=== PATIENT | female | born 1935 | race Caucasian/White ===

== ENCOUNTER → 2024-02-19 14:36 | Outpatient (REF) | payer OTHER, SELFPAY | LOC: WDC 14:36 | PROVIDERS: ATTENDING PHYSICIAN Family Medicine | DX: Z12.31 Encounter for screening mammogram for malignant neoplasm of breast (principal) | CPT/HCPCS: 77063; 77067 ==

== ENCOUNTER 2024-05-22 22:56 | Inpatient (IN) | payer OTHER, SELFPAY ==
[2024-05-22 18:57] VITALS: BP 152/81
[2024-05-22 19:22] LABS: % Basophils 0.6 % (0-2); % Eosinophils 1.5 % (0-6); % Immature Granulocytes 0.3 % (0-0.5); % Lymphocytes 18.5 % (20.5-51.1); % Monocytes 6.8 % (1.7-9.3); % Neutrophils 72.3 % (42.2-75.2); Absolute Basophils 0.1 10^3/uL (0-0.2); Absolute Eosinophils 0.1 10^3/uL (0-0.7); Absolute Lymphocytes 1.8 10^3/uL (1.2-3.4); Absolute Monocytes 0.6 10^3/uL (0.1-0.6); Absolute Neutrophils 6.8 10^3/uL (1.4-6.5); Hematocrit 36.5 % (37.0-47.0); Hemoglobin 11.6 g/dL (12.0-16.0); Mean Corp Hgb Conc. 31.8 g/dL (33.0-37.0); Mean Corpuscular Hgb 26.1 pg (27.0-31.0); Mean Corpuscular Volume 82.2 fL (81.0-99.0); Mean Platelet Volume 8.9 fL (7.4-10.4); Nucleated Red Blood Cells % 0 %; Platelet Count 318 10^3/uL (130-400); Red Blood Cell Count 4.44 10^6/uL (4.20-5.40); Red Cell Dist. Width 18.2 % (11.5-14.5); White Blood Cell Count 9.5 10^3/uL (4.8-10.8)
[2024-05-22 19:35] LABS: ALT (SGPT) 23 U/L (0-35); AST (SGOT) 37 U/L (14-36); Albumin 3.8 g/dl (3.5-5.0); Alkaline Phosphatase 91 U/L (38-126); Blood Urea Nitrogen 14 mg/dl (7-17); Calcium 9.2 mg/dl (8.4-10.2); Carbon Dioxide 26 mmol/L (22-30); Chloride 103 mmol/L (98-107); Glucose 112 mg/dl (70-99); Potassium 4.2 mmol/L (3.5-5.1); Sodium 136 mmol/L (135-145); Total Bilirubin 0.5 mg/dl (0.2-1.3); Total Protein 6.9 g/dl (6.3-8.2); eGFR > 60.00
[2024-05-22 19:37] LABS: COVID-19 Antigen Negative (Negative)
[2024-05-22 21:06] VITALS: BP 136/58
[2024-05-22 21:10] VITALS: BP 136/58
--- NOTE | 2024-05-22 21:17 | ED.GENMED ---
History of Present Illness
General
Chief Complaint: Fever
Source: patient, spouse and family
Exam Limitations: none
Time Seen by Provider: 05/22/24 21:11
History of Present Illness
History of Present Illness:
See MDM
Past History
Past History
ED Past Medical History: HTN, Hypercholesterolemia and NC
Social History
Tobacco: Non-smoker
Personal:
Phy Exam
Physical Exam
Physical Exam:
See MDM
Course
Orders/Labs/Results
Orders:
Orders
05/22/24 19:06
COVID-19 Antigen Urgent
Source: Nasal Swab
Complete Blood Count/With Diff Urgent
Comprehensive Metabolic Panel Urgent
Lactic Acid Urgent
05/22/24 21:15
Straight cath- Treatment ONCE
Acetaminophen [Tylenol] 1,000 mg PO NOW STA
CR Chest - 2 Views Urgent
Comment:
Reason For Exam: fever, cough
05/22/24 21:45
Urinalysis Reflex To Culture Urgent
Date Specimen was Collected: 05/22/24
Time Specimen was Collected: 21:24
Urine Microscopic Reflex Cult Urgent
05/22/24 22:26
Azithromycin 500 mg/250 ml [Zithromax Infusion] 500 mg in 250 ml IV NOW
CefTRIAXone [Rocephin] 1,000 mg IV NOW STA
05/22/24 22:27
Blood Culture Urgent
PACO Source: Blood/Venous
Specimen Description:
Abnormal Lab Results
05/22/24 05/22/24
19:06 21:45
Hgb 11.6 L g/dL
(12.0-16.0)
Hct 36.5 L %
(37.0-47.0)
MCH 26.1 L pg
(27.0-31.0)
MCHC 31.8 L g/dL
(33.0-37.0)
RDW 18.2 H %
(11.5-14.5)
Absolute Neuts (auto) 6.8 H 10^3/uL
(1.4-6.5)
Lymphocytes % 18.5 L %
(20.5-51.1)
Glucose 112 H mg/dl
(70-99)
AST 37 H U/L
(14-36)
Urine Ketones 2+ A
(Negative)
Ur Occult Blood Reflex 3+ A
(Negative)
05/22/24 19:06
05/22/24 19:06
Vital Signs
Initial and Last Documented VS:
Initial Vital Signs
Temp Pulse Resp BP Pulse Ox
100.4 F H 79 18 152/81 92
05/22/24 18:57 05/22/24 18:57 05/22/24 18:57 05/22/24 18:57 05/22/24 18:57
Last Documented Vital Signs
Temp Pulse Resp BP Pulse Ox
100.4 F H 75 19 136/58 97
05/22/24 21:06 05/22/24 21:06 05/22/24 21:06 05/22/24 21:06 05/22/24 21:06
MDM/Problems Addressed
Differential Diagnosis Includes:
HPI and MDM Narrative:
89-year-old female presenting for evaluation of fever and weakness. Her had similar issues but was placed on antibiotics and his symptoms resolved. Patient has had a mild cough. Family is worried about her profound weakness. She also
complains of increased urinary frequency on my evaluation, blood work was already performed. White blood cell count and lactic acid and COVID are negative. However, patient is febrile and generally weak. Will obtain chest x-ray and urinalysis
Physical exam
General: Weak and fatigued
HEENT: protecting airway
Neck: appears supple
CV: No evidence of cyanosis
Resp: No accessory muscle use. Mild rhonchi to bases
Abd: Non-distended. Soft and nontender
back: No rash or tenderness noted
Extremities: No deformities. Muscle strength intact to both lower extremities. Distal sensation and pulses grossly intact. Patellar reflexes intact
Neuro: alert
Psych: Normal affect
Skin: Warm
Problems Addressed including Acute and Chronic Conditions affecting care:
1. Fever and weakness
Acuity: acute
Prognosis: stable
Details: Will obtain chest x-ray and urinalysis
Update: Chest x-ray concerning for pneumonia. Azithromycin and Rocephin started
Updates
Chest x-ray concerning for left lower lobe pneumonia. Given her profound weakness and fatigue, will start antibiotics and admit
Differential Diagnosis (but not limited to): Viral syndrome, pneumonia, UTI
Testing considered: Abdominal CT
Drug therapy (if applicable): OTC meds, please see d/c instruction regarding Rx drugs
Amount and/or Complexity of Data Reviewed
Clinical info obtained from: Patient. and daughter stating she is too weak to care for herself at home
External data reviewed: N/A
Labs I independently reviewed (but not limited to): White blood cell count normal
Radiology: X-ray independently reviewed: Chest x-ray concerning for left lower lobe pneumonia
Pulse Ox: not hypoxic
EKG independently reviewed: N/A
Community Relations Advisor: N/A
Critical Care: N/A
Risk of Complication:
Social Determinants of health: Good social support
Discussed with other providers: Hospitalist
Escalation of Care includes Admit/Obs: Given the pneumonia, fever and profound weakness, will start antibiotics and admit
Occasional wrong word or 'sound a like' substitutions may have occurred due to the inherent limitations of voice recognition software. Read the chart carefully and recognize, using context, where substitutions have occurred.
*Critical Care Note
Total Time (30-74mins, 75-104mins- exclusive of procedures): Not Applicable
ED Attending Note
-
Portions of this chart may have been created with voice recognition software.� Occasional wrong word or��sound alike� substitutions may have occurred due to the inherent limitations of voice recognition software.
Discharge Plan
Departure
Patient Disposition: Home (Routine Discharge)
Date of Disposition: 05/22/24
Time of Disposition: 22:30
Patient with high blood pressure during this ER visit?: No
Discharge Problem:
PNA (pneumonia)
Prescriptions:
No Action
pravastatin 40 MG tablet
40 mg PO HS
metoprolol succinate 50 MG tablet extended release 24 hr
50 mg PO DAILY
clopidogrel 75 MG tablet
75 mg PO DAILY
aspirin [Aspir-Low] 81 MG tablet,delayed release (DR/EC)
81 mg PO DAILY
Folic Acid: 800 MCG
800 mcg PO DAILY
citalopram 10 MG tablet
10 mg PO DAILY
isosorbide mononitrate 60 MG tablet extended release 24 hr
60 mg PO DAILY
irbesartan 150 MG tablet
150 mg PO DAILY
Referrals:
Eduardo Woods MD [Family Provider] -
Interventions
Interventions:
*Risk Screen - Suicide Last Done: 05/22/24 18:57
*General Assessment Last Done: 05/22/24 18:57
*Neglect/Abuse Screening Last Done: 05/22/24 18:57
ED- Fall Risk Assessment Last Done: 05/22/24 21:06
*ED COVID-19 Vaccine History Last Done: 05/22/24 18:57
ED- Neurological Assessment Last Done: 05/22/24 21:06
ED-Skin Assessment Last Done: 05/22/24 21:06
Discharge Date and Time
Print Language: L[place]
[2024-05-22] MEDS: TYLENOL 1000 MG PO (21:32)
[2024-05-22 22:00] VITALS: BP 118/56
[2024-05-22 22:00] LABS: Urine Albumin Trace (Neg - Trace); Urine Bilirubin Negative (Negative); Urine Character Clear (Clear); Urine Color Yellow; Urine Glucose Negative (Negative); Urine Ketone 2+ (Negative); Urine Leukocyte Negative (Negative); Urine Nitrite Negative (Negative); Urine Occult Blood 3+ (Negative); Urine Specific Gravity 1.015 (<1.030); Urine Urobilinogen Negative (Neg - 1+)
[2024-05-22 22:38] LABS: Urine Bacteria Few (Negative)
--- NOTE | 2024-05-22 22:53 | HPS.HSE ---
Family Physician
-
Family Physician: Eduardo Woods
Chief Complaint
-
Weakness
History of Present Illness
Patient is a 89 yo F with PMH CAD with prior stent, hypertension, hyperlipidemia and depression who presents c/o fatigue and weakness x 1 day. Pt states she 'just doesn't feel right.' Pt also c/o of dry, non-productive cough, nausea, urinary
frequency, and 1 episode of urinary incontinence because she could not make it to the bathroom in time due to significant weakness. Upon arrival to the emergency department she was found to be febrile with temp 100.4F. She denies sweats/chills,
chest pain, palpitations, shortness of breath, vomiting or abdominal pain.
Medical History
Past Medical History
Past Medical History: Reports Other
Additional Past Medical History:
Coronary Artery Disease s/p Stent
TIA
Essential Hypertension
Hyperlipidemia
Depression
Past Surgical History: Reports None
Social History
Tobacco: Non-smoker
Alcohol: None
Personal:
Living: With Family
Family History
Family History: Not pertinent
Allergies / Home Medications
Allergies reflects when Allergies were last updated in [employer].
Home Medications with original date entered in [employer]
Allergy/Medication List:
Allergies
Allergy/AdvReac Type Severity Reaction Status Date / Time
Shellfish *RETIRED-07/05/12 Allergy Difficulty Verified 05/17/20 06:35
[Shellfish] Breathing
Home Medications
metoprolol succinate 50 mg tablet,extended release 24 hr 50 mg PO DAILY 03/16/14
citalopram 10 mg tablet 10 mg PO DAILY 05/16/20
irbesartan 150 mg tablet 150 mg PO DAILY 05/16/20
isosorbide mononitrate 60 mg tablet,extended release 24 hr 60 mg PO DAILY 05/16/20
aspirin 81 mg chewable tablet 81 mg PO DAILY 05/22/24
atorvastatin 80 mg tablet 80 mg PO DAILY 05/22/24
therapeutic multivitamin 1 tab PO DAILY 05/22/24
Review of Systems
-
A 12 point ROS was completed and negative except as noted: Yes
Constitutional: Reports Fever; Denies Night Sweats or Chills
Respiratory: Reports See HPI
Cardiac: Denies Chest Pain or Palpitations
Abdomen/GI: Reports Nausea; Denies Abdominal Pain or Vomiting
Physical Exam
Vital Signs
Vital Signs
Temp Pulse Resp BP Pulse Ox
100.4 F H 76 20 118/56 90
05/22/24 21:06 05/22/24 22:00 05/22/24 22:00 05/22/24 22:00 05/22/24 22:00
Physical Exam
General: Comfortable and Conversant
HEENT: Anicteric and Moist mucous membranes
Respiratory: Clear, Non Labored Respirations and Other (Dry Cough)
Cardiac: S1/S2 and Regular Rhythm
GI: Soft and Non Tender
Rectal: Deferred by Provider
Musculoskeletal: No Clubbing, No Cyanosis and No Edema
Skin: Warm and Dry
Neuro: Awake, Alert, Oriented, Nonfocal/grossly intact and Other (Chronic Foot Drop)
Psych: Calm
Laboratory Results
-
05/22/24 19:06
05/22/24 19:06
Laboratory Results
Lactic Acid 1.0 mmol/L (0.7-2.0) 05/22/24 19:06
Total Bilirubin 0.5 mg/dl (0.2-1.3) 05/22/24 19:06
AST 37 U/L (14-36) H 05/22/24 19:06
ALT 23 U/L (0-35) 05/22/24 19:06
Alkaline Phosphatase 91 U/L (38-126) 05/22/24 19:06
Data Reviewed
-
Lab Data: Labs Reviewed by me
Impression/Plan
-
Community Acquired Pneumonia
-Continue Rocephin and Zithromax
Coronary Artery Disease s/p Stent
-Continue aspirin
-Continue isosorbide mononitrate
Essential Hypertension
-Continue irbesartan
Hyperlipidemia
-Continue atorvastatin
Depression
-Continue citalopram
DVT proph: Lovenox
Code Status: DNR
--- NOTE | 2024-05-22 22:54 | W.PN.UPDATE ---
Update Note
Progress Note Update
This is an addendum to the H&P written by Roseline Coyne on 05/22/2024. Patient seen and examined independently with PA.
89-year-old female past medical history of CAD s/p stents, HTN, HLD, TIA here for weakness/cough and fever. Chest x-ray shows left lower lobe pneumonia. Patient also with worsening of chronic back pain, some urinary urgency although urinalysis not
convincing for infection. COVID-negative. IV fluids. Ceftriaxone/azithromycin.
[2024-05-22] MEDS: ROCEPHIN 1000 MG IV (23:05)
[2024-05-22] MEDS: ZITHROMAX INFUSION 250 IV (23:12)
[2024-05-23] VITALS (8 sets, daily range): BP systolic 132–153; BP diastolic 49–73; PULSE 64; O2SAT 92; BMI 29.1
--- NOTE | 2024-05-23 02:05 | PTCARENOTE ---
Pt arrived onto floor @0205. Pt AAOx3 and a basting puller to the bed. Pt with no complaints of pain or SOB at this time. Pt oriented to room and call davis; will continue to monitor
[2024-05-23] MEDS: NSS 1000 IV ×2 (02:53→18:01)
[2024-05-23] MEDS: LOW STRENGTH ASPIRIN 81 MG PO (07:54)
[2024-05-23] MEDS: LIPITOR 80 MG PO (07:54)
[2024-05-23] MEDS: IMDUR (EXTENDED RELEASE) 60 MG PO (07:55)
[2024-05-23] MEDS: AVAPRO 150 MG PO (07:55)
[2024-05-23 11:17] LABS: Hematocrit 32.4 % (37.0-47.0); Hemoglobin 10.3 g/dL (12.0-16.0); Mean Corp Hgb Conc. 31.8 g/dL (33.0-37.0); Mean Corpuscular Hgb 26.3 pg (27.0-31.0); Mean Corpuscular Volume 82.9 fL (81.0-99.0); Platelet Count 259 10^3/uL (130-400); Red Blood Cell Count 3.91 10^6/uL (4.20-5.40); Red Cell Dist. Width 18.2 % (11.5-14.5); White Blood Cell Count 8.6 10^3/uL (4.8-10.8)
--- NOTE | 2024-05-23 11:50 | W.PN.HOSP.TC ---
Today's Communication/Plan
-
Check cultures
Check urinary antigens
Continue antibiotics
Assessment / Plan
Assessment / Plan
Gen-AAOx3, NAD
HEENT-NC, AT, anicteric, clear oral mm
Neck-supple
CV-reg, no M, +S1/S2
Lungs-clear B/L
Abd-soft, NT, ND
Ext-no edema
Musculoskeletal-no cyanosis, clubbing
Skin-warm and dry
Neuro-grossly non-focal
Psych-calm, cooperative
Community-acquired pneumonia -unclear if typical versus atypical infection. Febrile on admission but white blood cell count normal. Clinically improving, feels better today. Still with productive cough. Continue empiric antibiotics. Chest x-ray
unimpressive, no obvious infiltrate. Blood culture sent, pending. Check urinary antigens. Check sputum culture.
Her was ill recently with a cough and is completing a course of antibiotics.
CAD -s/p stent. Continue medical management.
Essential hypertension -stable, continue meds.
Hyperlipidemia -continue atorvastatin.
Depression -continue citalopram.
DNR
PT/OT
Dispo -anticipate discharge home tomorrow if she continues to improve. Outpatient follow-up.
Anticipated Discharge: Within 24 hours
Subjective/Interval History
-
Date of Service: May 23, 2024
Patient seen and examined. Feeling better overall. Denies shortness of breath.
Objective Data
-
Labs:
Laboratory Results
05/23/24
10:33
WBC 8.6
Hgb 10.3 L
Hct 32.4 L
Plt Count 259
Sodium Pending
Potassium Pending
Chloride Pending
Carbon Dioxide Pending
BUN Pending
Creatinine Pending
Glucose Pending
Calcium Pending
Vital Signs:
Vital Signs
Temp Pulse Resp BP Pulse Ox
98.7 F 63 20 143/59 95
05/23/24 07:52 05/23/24 07:52 05/23/24 07:52 05/23/24 07:52 05/23/24 09:28
I&O
05/22/24 05/23/24 05/24/24
06:59 06:59 06:59
Intake Total 420 / 420
Balance 420 / 420
Review of Systems
-
History Source: Patient
All other systems: Reviewed and negative
--- NOTE | 2024-05-23 12:43 | CM ---
authorization manager reviewed patient's chart and met with patient and patient lives with her spouse in a 2 story home with one step to enter, patient is independent with adl's and uses a walker with ambulation. Patient's physician is recommending homecare
for patient and options reviewed with patient and patient has selected [facility], [facility] liaison contacted.
Pharmacy: [facility]
PCP: Dr. Woods
Plan; Home with spouse and [facility].
--- NOTE | 2024-05-23 13:32 | VNURNOTE ---
Home Health Liaison met with patient at bedside to discuss [facility] nurse/therapy, visits, schedule and homebound status. Patient is agreeable and understands that visits at home will be 1-3 x per week to assess and teach medical management. [facility]
brochure provided with contact information. Patient is aware that [facility] will contact them for start of care within a few days after discharge from . [facility] referral completed in [facility].
[2024-05-23 14:33] LABS: Blood Urea Nitrogen 14 mg/dl (7-17); Calcium 8.6 mg/dl (8.4-10.2); Carbon Dioxide 24 mmol/L (22-30); Chloride 105 mmol/L (98-107); Estimated Creatinine Clearance 50 ml/min; Glucose 91 mg/dl (70-99); Potassium 4.1 mmol/L (3.5-5.1); Sodium 134 mmol/L (135-145); eGFR > 60.00
[2024-05-23] MEDS: TYLENOL 650 MG PO (15:38)
--- NOTE | 2024-05-23 15:43 | PTCARENOTE ---
Patient with fever 101.8 and chills this afternoon. Blood cultures pending; PRN Tylenol given as ordered. call center manager hospitalist made aware.
[2024-05-23] MEDS: LOVENOX 40 MG SC (17:07)
--- NOTE | 2024-05-23 18:24 | PTCARENOTE ---
Patient has had multiple loose BM's this afternoon. Dr. Fraga made aware and will hold off on stool sample for now.
[2024-05-23] MEDS: ZITHROMAX 500 MG PO (21:06)
[2024-05-23] MEDS: STERILE WATER FOR INJECTION 10 ML IV (21:07)
[2024-05-23] MEDS: ROCEPHIN 1000 MG IV (21:10)
[2024-05-24] MEDS: TYLENOL 650 MG PO (02:27)
[2024-05-24 07:21] VITALS: BP 125/58
[2024-05-24] MEDS: AVAPRO 150 MG PO (09:30)
[2024-05-24] MEDS: LOW STRENGTH ASPIRIN 81 MG PO (09:31)
[2024-05-24] MEDS: IMDUR (EXTENDED RELEASE) 60 MG PO (09:31)
[2024-05-24] MEDS: LIPITOR 80 MG PO (09:31)
--- NOTE | 2024-05-24 09:53 | PN.CDI ---
CDI
- -
CDI:
Physician Documentation Request
Admit Date: 05/22/24 22:56
Dear Doctor Tiffanie,
Patient admitted for pneumonia.
Selected Entries
05/22/24
18:57 05/22/24
21:06
Temp 100.4 F H 100.4 F H
05/22/24
21:10 05/22/24
21:15 05/22/24
21:45
Resp Rate 28 23 21
Please clarify which of the following most accurately describes the status of the patient's infection:
Sepsis, POA
- Systemic manifestations of infection, with 2 or more SIRS criteria which include:
- Fever >100.4 degrees F or hypothermia < 96.8 degrees F
- Leukocytosis - WBC > 12,000 or leukopenia - WBC < 4,000 or > 10% bands
- Tachycardia > 90 beats per minute
- Tachypnea - RR > 20 breaths per minute or PaCO2 , 32mmHg
Source: Merck Manual 2013
- Indicate the known or suspected organism
Localized Infection Only, Without Systemic Illness
- indicate the site/source, such as pneumonia etc.
Other
Use of terms such as suspected, likely, concern for, or probable (associated with a specific diagnosis that is being evaluated, monitored, or treated as if it exists) are acceptable and can be coded in the inpatient setting, when documented at the
time of discharge.
Thank you,
Martha Glasgow RN, BSN
CDI Specialist
Available via [employer] text
Please use your independent medical judgment in providing your response.
--- NOTE | 2024-05-24 10:00 | W.PN.HOSP.TC ---
Addendum entered and electronically signed by Meek Moreno DO 05/24/24 12:34:
Sepsis - present on admission, possibly due to pneumonia.
Original Note:
Today's Communication/Plan
-
Blood cultures
CT chest
Stool specimen
Acapella, incentive spirometry
Assessment / Plan
Assessment / Plan
Gen-AAOx3, NAD
HEENT-NC, AT, anicteric, clear oral mm
Neck-supple
CV-reg, no M, +S1/S2
Lungs-clear B/L
Abd-soft, NT, ND
Ext-no edema
Musculoskeletal-no cyanosis, clubbing
Skin-warm and dry
Neuro-grossly non-focal
Psych-calm, cooperative
Community-acquired pneumonia -unclear if typical versus atypical infection. Her was ill recently with a cough and is completing a course of antibiotics.
Ongoing fevers noted. Check CT chest to evaluate for infectious versus other etiology as chest x-ray was unremarkable. Recheck blood cultures. Urinary antigens negative. Sputum culture pending.
Currently on ceftriaxone and azithromycin. Add Acapella, incentive spirometry.
Acute diarrhea -rule out C. difficile infection, check stool sample. Other possibility is antibiotic associated colitis. Discussed with nursing.
CAD -s/p stent. Continue medical management.
Essential hypertension -stable, continue meds.
Hyperlipidemia -continue atorvastatin.
Depression -continue citalopram.
DNR
PT/OT
Updated family at the bedside.
Anticipated Discharge: > 48 hours
Subjective/Interval History
-
Date of Service: May 24, 2024
Patient seen and examined. Complaining of loose stools. Productive cough.
Objective Data
-
Vital Signs:
Vital Signs
Temp Pulse Resp BP Pulse Ox
97.8 F 67 22 125/58 96
05/24/24 07:21 08/07/24 07:21 05/24/24 07:21 05/24/24 07:21 05/24/24 07:21
I&O
05/23/24 05/24/24 05/25/24
06:59 06:59 06:59
Intake Total 420 / 420 2039
Balance 420 / 420 2039
Review of Systems
-
History Source: Patient
All other systems: Reviewed and negative
--- NOTE | 2024-05-24 11:14 | CM ---
Chart reviewed and plan is for patient to return to home with [facility].
Plan; Home with [facility].
[2024-05-24] MEDS: NSS 1000 IV (13:18)
[2024-05-24 15:00] VITALS: PULSE 75; O2SAT 94
[2024-05-24 15:13] VITALS: BP 126/78
[2024-05-24] MEDS: LOVENOX 40 MG SC (16:08)
[2024-05-24] MEDS: ZITHROMAX 500 MG PO (21:02)
[2024-05-24] MEDS: STERILE WATER FOR INJECTION 10 ML IV (21:02)
[2024-05-24] MEDS: ROCEPHIN 1000 MG IV (21:02)
[2024-05-24 23:49] VITALS: BP 142/63
[2024-05-25] MEDS: NSS 1000 IV (00:17)
[2024-05-25 07:40] VITALS: BP 169/78
[2024-05-25] MEDS: LIPITOR 80 MG PO (08:17)
[2024-05-25] MEDS: IMDUR (EXTENDED RELEASE) 60 MG PO (08:17)
[2024-05-25] MEDS: AVAPRO 150 MG PO (08:18)
[2024-05-25] MEDS: LOW STRENGTH ASPIRIN 81 MG PO (08:18)
[2024-05-25 09:37] LABS: % Basophils 0.8 % (0-2); % Eosinophils 5.8 % (0-6); % Immature Granulocytes 0.2 % (0-0.5); % Lymphocytes 28.4 % (20.5-51.1); % Monocytes 9.8 % (1.7-9.3); Absolute Basophils 0.1 10^3/uL (0-0.2); Absolute Eosinophils 0.4 10^3/uL (0-0.7); Absolute Lymphocytes 1.7 10^3/uL (1.2-3.4); Absolute Monocytes 0.6 10^3/uL (0.1-0.6); Absolute Neutrophils 3.3 10^3/uL (1.4-6.5); Hematocrit 30.5 % (37.0-47.0); Hemoglobin 9.6 g/dL (12.0-16.0); Mean Corp Hgb Conc. 31.5 g/dL (33.0-37.0); Mean Corpuscular Volume 82.7 fL (81.0-99.0); Mean Platelet Volume 9.2 fL (7.4-10.4); Nucleated Red Blood Cells % 0 %; Platelet Count 238 10^3/uL (130-400); Red Blood Cell Count 3.69 10^6/uL (4.20-5.40); Red Cell Dist. Width 18.2 % (11.5-14.5)
--- NOTE | 2024-05-25 09:59 | CM ---
Addendum entered by Margarita Kirk 05/25/24 11:58:
Script written for a walker, patient case manager spoke with PT and they will issue a walker to patient today, daughter, Sindhu is at bedside to transport patient to home today.
Original Note:
Chart reviewed and physical therapy are recommending home health, [facility] liaison contacted and referral placed to [facility].
Plan; Home with spouse and [facility].
--- NOTE | 2024-05-25 10:57 | W.PN.HOSP.TC ---
Today's Communication/Plan
-
Discharge
Assessment / Plan
Assessment / Plan
Gen-AAOx3, NAD
HEENT-NC, AT, anicteric, clear oral mm
Neck-supple
CV-reg, no M, +S1/S2
Lungs-clear B/L
Abd-soft, NT, ND
Ext-no edema
Musculoskeletal-no cyanosis, clubbing
Skin-warm and dry
Neuro-grossly non-focal
Psych-calm, cooperative
Community-acquired pneumonia -unclear if typical versus atypical infection. Her was ill recently with a cough and is completing a course of antibiotics. Tmax was 101.4 �F at 2 AM on May 24. Has been afebrile since.
White blood cell count remains normal. CT chest confirms groundglass opacities and nodular consolidations within the posterior right upper lobe and lingula consistent with multifocal pneumonia. Additional scattered bilateral micronodules less than
3 mm which are likely benign are noted.
Urinary antigens negative. Sputum culture pending. Admission blood cultures negative. Stool for C. difficile toxin negative. Repeat blood culture sent yesterday, pending.
Currently on ceftriaxone and azithromycin. Add Acapella, incentive spirometry.
Acute diarrhea -due to side effects of antibiotics. Can use Imodium as needed.
History of chronic back pain -patient currently denies back pain. Has had spinal injections in the past. 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 Findings were
discussed with patient and daughter at the bedside and recommend outpatient follow-up.
CAD -s/p stent. Continue medical management.
Essential hypertension -stable, continue meds.
Hyperlipidemia -continue atorvastatin.
Depression -continue citalopram.
DNR
Dispo -medically stable for discharge. Recommend outpatient follow-up next week with primary care doctor. Will arrange for VN.
32 minutes spent in discharge process.
Updated family at the bedside.
Anticipated Discharge: Today
Subjective/Interval History
-
Date of Service: May 25, 2024
Patient seen and examined. No complaints.
Objective Data
-
Labs:
Laboratory Results
05/25/24
09:04
WBC 6.0
Hgb 9.6 L
Hct 30.5 L
Plt Count 238
Sodium Pending
Potassium Pending
Chloride Pending
Carbon Dioxide Pending
BUN Pending
Creatinine Pending
Glucose Pending
Calcium Pending
Total Bilirubin Pending
AST Pending
ALT Pending
Alkaline Phosphatase Pending
Vital Signs:
Vital Signs
Temp Pulse Resp BP Pulse Ox
97.9 F 67 18 169/78 96
05/25/24 07:40 05/25/24 07:40 05/25/24 07:40 05/25/24 07:40 05/25/24 07:40
I&O
05/24/24 05/25/24 05/26/24
06:59 06:59 06:59
Intake Total 2039 1000 / 1000
Balance 2039 1000 / 1000
Review of Systems
-
History Source: Patient
All other systems: Reviewed and negative
--- NOTE | 2024-05-25 11:06 | W.DS.TRANS ---
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
-
Discharge Instructions:
Discharge Diagnosis/Procedures Community-acquired pneumonia
Diet Low Sodium
Activity As tolerated,With assistance
Driving Restrictions No driving
Bathing Restrictions None
Other Services VN,PT
Instructions:
Stand-Alone Forms:
Changes to Home Medications: No
Discharge Medications:
DC Medications w/original date entered in [facility]
metoprolol succinate 50 mg tablet,extended release 24 hr 50 mg PO DAILY Heart Failure 03/16/14
citalopram 10 mg tablet 10 mg PO DAILY Depression 05/16/20
irbesartan 150 mg tablet 150 mg PO DAILY Blood Pressure 05/16/20
isosorbide mononitrate 60 mg tablet,extended release 24 hr 60 mg PO DAILY Heart Disease/Condition 05/16/20
aspirin 81 mg chewable tablet 81 mg PO DAILY Blood Clot Prevention/Tx 05/22/24
atorvastatin 80 mg tablet 80 mg PO DAILY High Cholesterol 05/22/24
therapeutic multivitamin 1 tab PO DAILY Supplement 05/22/24
cefpodoxime 200 mg tablet 200 mg PO BID #8 tabs 05/25/24
doxycycline monohydrate 100 mg tablet 100 mg PO BID #8 tabs 05/25/24
Home Medication Changes
Pending Results: No
[2024-05-25 11:08] LABS: ALT (SGPT) 24 U/L (0-35); AST (SGOT) 44 U/L (14-36); Albumin 2.8 g/dl (3.5-5.0); Alkaline Phosphatase 62 U/L (38-126); Blood Urea Nitrogen 8 mg/dl (7-17); Calcium 8.5 mg/dl (8.4-10.2); Carbon Dioxide 25 mmol/L (22-30); Chloride 109 mmol/L (98-107); Estimated Creatinine Clearance 57 ml/min; Glucose 93 mg/dl (70-99); Potassium 3.9 mmol/L (3.5-5.1); Sodium 138 mmol/L (135-145); Total Bilirubin 0.2 mg/dl (0.2-1.3); Total Protein 5.5 g/dl (6.3-8.2); eGFR > 60.00
[2024-05-25 11:58] VITALS: BP 139/67
== END 2024-05-25 12:40 | disposition home health service (06) | DRG 871 ==
LOC: 4 WEST ACU 22:56
PROVIDERS: Emergency Medicine; Physician Assistant Medical; ADMITTING PHYSICIAN Hospitalist; ATTENDING PHYSICIAN Hospitalist; EMERGENCY PHYSICIAN Student in an Organized Health Care Education/Training Program; FAMILY PHYSICIAN Family Medicine
DX: A41.9 Sepsis, unspecified organism (principal); J18.9 Pneumonia, unspecified organism; Z11.52 Encounter for screening for COVID-19; I25.10 Atherosclerotic heart disease of native coronary artery without angina pectoris; I10 Essential (primary) hypertension; E78.00 Pure hypercholesterolemia, unspecified; F32.A Depression, unspecified; Z66 Do not resuscitate
CPT/HCPCS: 71046; 71260; 80048; 80053; 81003; 81015; 83605; 85025; 85027; 87040; 87070; 87205; 87324; 87449; 87811; 87899; 97116; 97162; 97166; 99285; Q9967

== ENCOUNTER → 2024-07-20 10:57 | Outpatient (REF) | payer OTHER, SELFPAY | LOC: RAD 10:57 | PROVIDERS: ATTENDING PHYSICIAN Family Medicine | DX: Z09 Encounter for follow-up examination after completed treatment for conditions other than malignant neoplasm (principal); J18.9 Pneumonia, unspecified organism | CPT/HCPCS: 71046 ==

== ENCOUNTER → 2025-04-09 14:19 | Outpatient (REF) | payer OTHER, SELFPAY | LOC: WDC 14:19 | PROVIDERS: ATTENDING PHYSICIAN Family Medicine | DX: Z12.31 Encounter for screening mammogram for malignant neoplasm of breast (principal) | CPT/HCPCS: 77063; 77067 ==